=== PATIENT | male | born 1970 | race African-American/Black ===

== ENCOUNTER 2020-08-31 17:06 | Emergency (ER) | payer OTHER ==
[~2020-08-31] VITALS: Ht 167.6 cm; Wt 82.1 kg
[2020-08-31] MEDS ORDERED: ZANAFLEX4 MG PO (18:36)
[2020-08-31] MEDS ORDERED: MOBIC7.5 MG PO (18:36)
[2020-08-31 19:13] VITALS: BP 123/62
== END 2020-08-31 19:50 | disposition home or self-care (01) ==
LOC: ER 17:06
DX: S39.012A Strain of muscle, fascia and tendon of lower back, initial encounter (principal); M25.551 Pain in right hip; X58.XXXA Exposure to other specified factors, initial encounter; Y93.89 Activity, other specified; Y92.89 Other specified places as the place of occurrence of the external cause; Y99.8 Other external cause status